=== PATIENT | female | born 1965 | race Hispanic/Latino ===

== ENCOUNTER 2017-02-07 12:17 | Observation (INO) | payer MEDICAID ==
[2017-02-07 12:17] VITALS: BMI 23.6
--- NOTE | 2017-02-07 12:42 | ED PDOC ---
Arrival/HPI - General Chief Complaint: Chest Pain Time Seen by Provider: 02/07/17 12:24 Historian: Patient - History of Present Illness Narrative History of Present Illness (Text): 02/07/17 12:38 A 51 year old female, whose past medical history includes asthma and anxiety, presents to the emergency department complaining of intermittent midsternal chest pain since last night. Patient describes her pain as a sharp sensation. Patient notes associated palpitations, shortness of breath and reports she has been feeling stressed. Patient denies any fever, chills, nausea, vomiting, diarrhea, abdominal pain, urinary symptoms, bilateral lower extremity swelling, cough or any other complaints. Patient reports she was recently on antibiotics for a sinus infection. She denies any recent travel or history of DVT or PE. She took Tums last night and today without relief. PMD: Dr. Pilar Moss Time/Duration: Other (Last night) Symptom Course: Unchanged, Intermittent Quality: Other Context: Home Past Medical History - Provider Review Nursing Documentation Reviewed: Yes - Infectious Disease Hx of Infectious Diseases: None - Tetanus Immunization Tetanus Immunization: Unknown - Cardiac Hx Cardiac Disorders: No - Pulmonary Hx Respiratory Disorders: Yes Hx Asthma: Yes - Neurological Hx Neurological Disorder: Yes - HEENT Hx HEENT Disorder: No - Renal Hx Renal Disorder: No - Endocrine/Metabolic Hx Endocrine Disorders: No - Hematological/Oncological Hx Blood Disorders: No - Integumentary Hx Dermatological Disorder: No - Musculoskeletal/Rheumatological Hx Musculoskeletal Disorders: No - Gastrointestinal Hx Gastrointestinal Disorders: No - Genitourinary/Gynecological Hx Genitourinary Disorders: No - Psychiatric Hx Psychophysiologic Disorder: No Hx Anxiety: No Hx Bipolar Disorder: No Hx Depression: No Hx Emotional Abuse: No Hx Hallucinations: No Hx Panic Disorder: No Hx Post Traumatic Stress Disorder: No Hx Psychosis: No Hx Physical Abuse: No Hx Schizophrenia: No Hx Sexual Abuse: No Hx Substance Use: No - Surgical History Hx Section: Yes Other/Comment: surgery to head and back - Anesthesia Hx Anesthesia: Yes Hx Anesthesia Reactions: No Hx Malignant Hyperthermia: No - Suicidal Assessment Feels Threatened In Home Enviroment: No Family/Social History - Physician Review Nursing Documentation Reviewed: Yes Family/Social History: No Known Family HX Smoking Status: Never Smoked Hx Alcohol Use: No Hx Substance Use: No Hx Substance Use Treatment: No Allergies/Home Meds Allergies/Adverse Reactions: Allergies No Known Allergies Allergy (Verified 02/07/17 12:35) Home Medications: Home Meds Medication Instructions Recorded Confirmed No Known Home Med 02/07/17 02/07/17 Review of Systems - Physician Review All systems were reviewed & negative as marked: Yes - Review of Systems Constitutional: absent: Fevers, Night Sweats Respiratory: SOB. absent: Cough Cardiovascular: Chest Pain, Palpitations. absent: Edema Gastrointestinal: absent: Abdominal Pain, Diarrhea, Nausea, Vomiting Genitourinary Female: absent: Dysuria, Frequency, Hematuria, Urine Output Changes Neurological: absent: Dizziness Physical Exam Vital Signs Reviewed: Yes Vital Signs Temp Pulse Resp BP Pulse Ox 02/07/17 15:07 89 16 148/76 97 02/07/17 12:41 98.7 F 103 H 16 124/68 95 Temperature: Afebrile Blood Pressure: Normal Pulse: Tachycardic Respiratory Rate: Normal Appearance: Positive for: Well-Appearing, Non-Toxic, Comfortable Pain Distress: None Mental Status: Positive for: Alert and Oriented X 3 - Systems Exam Head: Present: Atraumatic, Normocephalic Pupils: Present: PERRL Conjunctiva: Present: Normal Mouth: Present: Moist Mucous Membranes Pharnyx: Present: Normal. No: ERYTHEMA, EXUDATE Neck: Present: Normal Range of Motion Respiratory/Chest: Present: Clear to Auscultation, Good Air Exchange. No: Respiratory Distress, Accessory Muscle Use Cardiovascular: Present: Normal S1, S2, Tachycardic. No: Murmurs Abdomen: Present: Normal Bowel Sounds. No: Tenderness, Distention, Peritoneal Signs Upper Extremity: Present: Normal Inspection. No: Cyanosis, Edema Lower Extremity: Present: Normal Inspection. No: Edema Neurological: Present: GCS=15, CN II-XII Intact, Speech Normal Skin: Present: Warm, Dry, Normal Color. No: Rashes Psychiatric: Present: Alert, Oriented x 3, Normal Insight, Normal Concentration Medical Decision Making ED Course and Treatment: 02/07/17 12:38 Impression: A 51 year old female with intermittent midsternal chest pain. Patient notes palpitations, shortness of breath and feeling stressed. Differential: Anxiety vs PE sv GERD vs ACS vs muscular pain Plan: -- Chest pain -- EKG -- Labs -- Urinalysis -- Xanax and Aspirin -- Reassess and disposition Progress Notes: EKG shows sinus tachycardia at 115 BPM with normal intervals, normal axis, no ST /T changes compared to prior EKG on 04/15/14. Interpreted by me. Report Date : 02/07/2017 14:26:42 Procedure: Chest xray Dictator : David Hernadez MD IMPRESSION: No active disease. 02/07/17 15:20 Patient with noted history. EKG is unchanged from previous. Pain is vague. She took Tums without relief and given xanax here in the emergency department without relief. CXR is clear and lungs are CTA b/L. First set of CE negative and d-dimer is negative. Patient will need serial CE and observation on tele and further cardiology eval for concern for possible ACS. 02/07/17 15:22 Case was discussed with Dr. David David for placement on the hospitalist's service. - Lab Interpretations Lab Results: 02/07/17 12:50 02/07/17 12:50 Lab Results 02/07/17 14:25: PT 10.5, INR 0.97, APTT 30.0, D-Dimer, Quantitative 0.27 02/07/17 12:50: Sodium 136, Potassium 3.6, Chloride 109 H, Carbon Dioxide 20 L, Anion Gap 11, BUN 19, Creatinine 0.6, Est GFR ( Amer) > 60, Est GFR (Non- Af Amer) > 60, Random Glucose 115 H, Calcium 9.1, Magnesium 1.8, Total Bilirubin 0.3, AST 15, ALT 26, Alkaline Phosphatase 74, Lactate Dehydrogenase 452, Total Creatine Kinase 57, Troponin I < 0.01, NT-Pro-B Natriuret Pep 43.8, Total Protein 6.6, Albumin 3.9, Globulin 2.8, Albumin/Globulin Ratio 1.4, Lipase 183 02/07/17 12:50: WBC 6.6, RBC 4.16, Hgb 12.3, Hct 36.0, MCV 86.5, MCH 29.6, MCHC 34.2, RDW 12.6, Plt Count 364, MPV 9.0, Gran % 60.6, Lymph % (Auto) 31.9, [place] % (Auto) 6.4 H, Eos % (Auto) 0.9 L, Baso % (Auto) 0.2, Gran # 4.01, Lymph # 2.1 , [place] # 0.4, Eos # 0.1, Baso # 0.01 I have reviewed the lab results: Yes - RAD Interpretation Radiology Orders: 02/07/17 12:40 CHEST PORTABLE [RAD] Stat - Medication Orders Current Medication Orders: Discontinued Medications Alprazolam (Xanax) 0.25 mg PO STAT STA PRN Reason: Protocol Stop: 02/07/17 12:41 Last Admin: 02/07/17 12:55 Dose: 0.25 mg Aspirin (Aspirin Chewable) 324 mg PO STAT STA Stop: 02/07/17 12:41 Last Admin: 02/07/17 12:55 Dose: 324 mg - Scribe Statement The provider has reviewed the documentation as recorded by the Jocelyne Figueroa Provider Scribe Attestation: All medical record entries made by the Scribe were at my direction and personally dictated by me. I have reviewed the chart and agree that the record accurately reflects my personal performance of the history, physical exam, medical decision making, and the department course for this patient. I have also personally directed, reviewed, and agree with the discharge instructions and disposition. Disposition/Present on Arrival - Present on Arrival Any Indicators Present on Arrival: No History of DVT/PE: No History of Uncontrolled Diabetes: No Urinary Catheter: No History of Decub. Ulcer: No History Surgical Site Infection Following: None - Disposition Have Diagnosis and Disposition been Completed?: Yes Diagnosis: Chest pain Disposition: HOSPITALIZED Disposition Time: 15:05 Patient Plan: Observation, Telemetry Condition: FAIR Discharge Instructions (ExitCare): Chest Pain (ED) Referrals: Pilar Moss MD [Primary Care Provider] - Follow up with primary
[2017-02-07 13:16] LABS: ADD MANUAL DIFF? NO
[2017-02-07 13:21] LABS: BASO # 0.01 K/mm3 (0.0-2.0); BASO % 0.2 % (0.0-3.0); EOS # 0.1 (0.0-0.7); EOS % 0.9 % (1.5-5.0); GRAN # 4.01 (1.4-6.5); GRAN % 60.6 % (50.0-68.0); LYMPH # 2.1 (1.2-3.4); LYMPH % 31.9 % (22.0-35.0); MEAN CELL VOLUME 86.5 fL (80.0-105.0); MEAN CORPUSCULAR HEMOGLOBIN 29.6 pg (25.0-35.0); MEAN CORPUSCULAR HGB CONC 34.2 g/dl (31.0-37.0); MONO # 0.4 (0.1-0.6); MONO % 6.4 % (1.0-6.0); PLATELET COUNT 364 10^3/uL (120.0-450.0); RED CELL DISTRIBUTION WIDTH 12.6 % (11.5-14.5); WHITE BLOOD COUNT 6.6 10^3/ul (4.5-11.0)
[2017-02-07 13:31] LABS: BLOOD UREA NITROGEN 19 mg/dL (7-21); CALCIUM 9.1 mg/dL (8.4-10.5); CARBON DIOXIDE 20 mmol/L (21-33); CHLORIDE 109 mmol/L (98-107); GFR AFRICAN-AMERICAN > 60; GLUCOSE,RANDOM 115 mg/dL (70-110); MAGNESIUM 1.8 mg/dL (1.7-2.2); POTASSIUM 3.6 mmol/L (3.6-5.0); SODIUM 136 mmol/L (132-148); TOTAL PROTEIN 6.6 g/dL (5.8-8.3)
[2017-02-07 13:32] LABS: ALB/GLOB RATIO 1.4 (1.1-1.8); ALKALINE PHOSPHATASE 74 U/L (38-133); ALT/SGPT 26 U/L (7-56); AST/SGOT 15 U/L (15-39); BILIRUBIN,TOTAL 0.3 mg/dL (0.2-1.3); LIPASE 183 U/L (23-300)
[2017-02-07 13:44] LABS: TROPONIN I < 0.01 ng/mL
--- NOTE | 2017-02-07 14:28 | RAD ---
HISTORY: cp COMPARISON: 04/15/2014 FINDINGS: LUNGS: No active pulmonary disease. PLEURA: No significant pleural effusion identified, no pneumothorax apparent. CARDIOVASCULAR: Normal. OSSEOUS STRUCTURES: No significant abnormalities. VISUALIZED UPPER ABDOMEN: Normal. OTHER FINDINGS: None. IMPRESSION: No active disease.
[2017-02-07 14:52] LABS: INR 0.97 (0.93-1.08)
[2017-02-07 14:56] LABS: D DIMER 0.27 mg/L FEU (0-0.50)
--- NOTE | 2017-02-07 16:19 | CP.PCM.HP ---
History of Present Illness - History of Present Illness History of Present Illness: 51 yrs old female with hx of asthma and anxiety came to the ER for c/o cp ( left sternal border) since yesterday . no associated nausea but admits to having sob , pain is intensity of 6/10.pt denies any hx of HTN, DM,.PT,s asthma is seasonal only in the summer ,no pain at the present time. Present on Admission - Present on Admission Any Indicators Present on Admission: No Review of Systems - Review of Systems All systems: reviewed and no additional remarkable complaints except (as mentioned above.) Past Patient History - Infectious Disease Hx of Infectious Diseases: None - Tetanus Immunizations Tetanus Immunization: Unknown - Past Social History Smoking Status: Never Smoked - CARDIAC Hx Cardiac Disorders: No - PULMONARY Hx Respiratory Disorders: Yes Hx Asthma: Yes - NEUROLOGICAL Hx Neurological Disorder: Yes - HEENT Hx HEENT Problems: No - RENAL Hx Chronic Kidney Disease: No - ENDOCRINE/METABOLIC Hx Endocrine Disorders: No - HEMATOLOGICAL/ONCOLOGICAL Hx Blood Disorders: No - INTEGUMENTARY Hx Dermatological Problems: No - MUSCULOSKELETAL/RHEUMATOLOGICAL Hx Musculoskeletal Disorders: No - GASTROINTESTINAL Hx Gastrointestinal Disorders: No - GENITOURINARY/GYNECOLOGICAL Hx Genitourinary Disorders: No - PSYCHIATRIC Hx Psychophysiologic Disorder: No Hx Anxiety: No Hx Bipolar Disorder: No Hx Depression: No Hx Emotional Abuse: No Hx Hallucinations: No Hx Panic Symptoms: No Hx Post Traumatic Stress Disorder: No Hx Psychosis: No Hx Physical Abuse: No Hx Schizophrenia: No Hx Sexual Abuse: No Hx Substance Use: No - SURGICAL HISTORY Hx Section: Yes Other/Comment: surgery to head and back - ANESTHESIA Hx Anesthesia: Yes Hx Anesthesia Reactions: No Hx Malignant Hyperthermia: No Meds Allergies/Adverse Reactions: Allergies Allergy/AdvReac Type Severity Reaction Status Date / Time No Known Allergies Allergy Verified 02/07/17 12:35 Physical Exam - Constitutional Appears: No Acute Distress - Head Exam Head Exam: NORMOCEPHALIC - Eye Exam Eye Exam: Normal appearance Pupil Exam: PERRL - ENT Exam ENT Exam: Mucous Membranes Moist - Neck Exam Neck exam: Positive for: Full Rom, Normal Inspection - Respiratory Exam Respiratory Exam: Chest Wall Tenderness, Clear to Auscultation Bilateral, NORMAL BREATHING PATTERN Additional comments: pt has localized tendernerness at the lfet sternal border. - Cardiovascular Exam Cardiovascular Exam: REGULAR RHYTHM, +S1, +S2 - GI/Abdominal Exam GI & Abdominal Exam: Normal Bowel Sounds, Soft - Rectal Exam Rectal Exam: Deferred - Extremities Exam Extremities exam: Positive for: full ROM - Neurological Exam Neurological exam: Alert, CN II-XII Intact, Oriented x3 - Psychiatric Exam Psychiatric exam: Normal Affect - Skin Skin Exam: Dry, Normal Color, Warm Results - Vital Signs Recent Vital Signs: Last Vital Signs Temp 98.7 F 02/07/17 12:41 Pulse 89 02/07/17 15:07 Resp 16 02/07/17 15:07 BP 148/76 02/07/17 15:07 Pulse Ox 97 02/07/17 15:07 - Labs Result Diagrams: 02/07/17 12:50 02/07/17 12:50 Assessment & Plan - Assessment and Plan (Free Text) Assessment: cp / chest wall. hx of asthma and seasonal allergies. hx of anxiety. Plan: cbc ,bmp serial cardiac iso,duo nebs pain meds ,echo, cardiac consult. PFT. - Date & Time Date: 02/07/17 Time: 16:18
[2017-02-07 16:31] LABS: URINE BILIRUBIN NEGATIVE (NEGATIVE); URINE BLOOD SMALL (NEGATIVE); URINE GLUCOSE (UA) NEGATIVE (NEGATIVE); URINE KETONE TRACE mg/dL (NEGATIVE); URINE LEUKOCYTE ESTERASE NEGATIVE Leu/uL (NEGATIVE); URINE PROTEIN NEGATIVE mg/dL (<30 mg/dL); URINE UROBILINOGEN 0.2 E.U./dL (<1 E.U./dL)
[2017-02-07 16:39] LABS: URINE APPEARANCE CLEAR (CLEAR); URINE COLOR YELLOW (YELLOW)
[2017-02-07 17:08] LABS: URINE BACTERIA LARGE (NEG); URINE WBC 0 - 2 /hpf (0-6)
[2017-02-07 22:33] LABS: TROPONIN I < 0.01 ng/mL
[2017-02-08 01:27] VITALS: RESP 20
[2017-02-08 06:46] VITALS: O2SAT 98
[2017-02-08 07:44] LABS: ADD MANUAL DIFF? NO
[2017-02-08 07:51] LABS: BASO # 0.03 K/mm3 (0.0-2.0); BASO % 0.5 % (0.0-3.0); EOS # 0.1 (0.0-0.7); GRAN # 4.06 (1.4-6.5); HEMATOCRIT 38.3 % (36.0-48.0); LYMPH # 1.7 (1.2-3.4); LYMPH % 27.4 % (22.0-35.0); MEAN CELL VOLUME 86.3 fL (80.0-105.0); MEAN CORPUSCULAR HEMOGLOBIN 29.1 pg (25.0-35.0); MEAN CORPUSCULAR HGB CONC 33.7 g/dl (31.0-37.0); MONO # 0.4 (0.1-0.6); MONO % 6.1 % (1.0-6.0); PLATELET COUNT 339 10^3/uL (120.0-450.0); RED CELL DISTRIBUTION WIDTH 12.5 % (11.5-14.5); WHITE BLOOD COUNT 6.2 10^3/ul (4.5-11.0)
[2017-02-08 08:06] LABS: BLOOD UREA NITROGEN 11 mg/dL (7-21); CALCIUM 8.9 mg/dL (8.4-10.5); CARBON DIOXIDE 23 mmol/L (21-33); CHLORIDE 105 mmol/L (98-107); CHOLESTEROL 211 mg/dL (130-200); GFR AFRICAN-AMERICAN > 60; GLUCOSE,RANDOM 88 mg/dL (70-110); POTASSIUM 3.8 mmol/L (3.6-5.0); SODIUM 134 mmol/L (132-148)
[2017-02-08 08:28] LABS: TROPONIN I < 0.01 ng/mL
--- NOTE | 2017-02-08 10:23 | CARD ---
APPROVED REPORT EKG Measurement Heart [id number] [id number] <Conclusion> Sinus tachycardia PRWP, possible lead positioning Q in 3 Prolonged QTc
--- NOTE | 2017-02-08 11:08 | CARD ---
APPROVED REPORT EKG Measurement Heart [id number] [id number] <Conclusion> Normal sinus rhythm Normal ECG
[2017-02-08 13:28] VITALS: BP 101/77; PULSE 70; TEMP 98.6
--- NOTE | 2017-02-09 07:47 | CON ---
DATE: 02/08/2017 REASON FOR CONSULTATION: Chest pain, cardiac evaluation, rule out CAD. BRIEF CLINICAL HISTORY: This is a 51-year-old female with a past medical history significant for ast hma and anxiety disorder. Currently taking only atorvastatin at home, came in with complaint of left -sided chest pain which was tender. Denies any chest pain, dyspnea on exertion or chest pain on exer tion. PAST MEDICAL HISTORY: Significant for hyperlipidemia, asthma, anxiety disorder. SOCIAL HISTORY: Denies smoking. Denies any history of alcohol abuse. FAMILY HISTORY: No history of coronary artery disease. CURRENT MEDICATIONS: Lipitor at home, sometimes uses asthma pump rarely. REVIEW OF SYSTEMS: As per HPI. PHYSICAL EXAMINATION: VITAL SIGNS: Temperature afebrile, heart rate 70, blood pressure 101/77. HEENT: PERRLA. Extraocular muscles intact. NECK: Supple. No carotid bruits. No thyromegaly. CHEST: Clear to auscultation. HEART: S1, S2 regular. ABDOMEN: Soft. EXTREMITIES: Clubbing and cyanosis negative. BLOOD WORKUP: As follows: WBC 6.____, hemoglobin 12.____, hematocrit 38.3, platelet count of 339. Chemistry shows sodium 134, potassium 3.____, chloride 105, carbon dioxide ____, anion gap of 10, BUN 11, creatinine 0.4. Troponin 0.01, negative. Total cholesterol 211, LDL of ____, HDL 49, TSH is 0 .8. IMPRESSION: Atypical chest pain ____ multiple risk factors for coronary artery disease. EKG shows n ormal sinus, nonspecific ST-T changes. PLAN: Suggest echo and a stress test. Continue Lipitor. Add baby aspirin. Will follow with you. Thank you, Dr. David, for providing the opportunity in taking care of this patient. Will follow with you. Aminah Menjivar MD cc: [id number] TT: 02/09/2017 07:21:38 Confirmation # [id number] Dictation # [id number] mn
--- NOTE | 2017-02-09 07:48 | CON ---
DATE: 02/08/2017 ADDENDUM REASON FOR CONSULTATION: Chest pain. REASON FOR ADDENDUM: The patient underwent a stress test. Initially scheduled for a Myoview stress test, though patient is very claustrophobic so patient underwent regular stress test; walked for 6 mi nutes [address]-T changes noted. No evidence of chest pain. Essentially negative str ess test. Will inform Dr. David David that patient is okay to be discharged from cardiology point of view. Con tinue baby aspirin. Continue Lipitor. Will follow with you. Aminah Menjivar MD cc: [id number] TT: 02/09/2017 07:26:07 Confirmation # [id number] Dictation # [id number] mn
--- NOTE | 2017-02-09 09:27 | CARD ---
APPROVED REPORT EXAM: Two-dimensional and M-mode echocardiogram with Doppler and color Doppler. Other Information Quality : FairRhythm : INDICATION Chest Pain 2D DIMENSIONS Left Atrium (2D)3.0 (1.6-4.0cm)IVSd1.1 (0.7-1.1cm) Aortic Root (2D)2.0 (2.0-3.7cm)LVDd2.8 (3.9-5.9cm) PWd0.9 (0.7-1.1cm)LVDs1.1 (2.5-4.0cm) FS (%) 45.9 %LVEF (%)78.0 (>50%) M-Mode DIMENSIONS Aortic Cusp Exc.2.00 (1.5-2.0cm) Aortic Valve AoV Peak Kwiekcmx086.0cm/s Mitral Valve MV E Ynbdphre50.8cm/sMV A Skigbepm11.1cm/sE/A ratio0.8 TDI Lateral E' Peak V8.92cm/sMedial E' Peak V5.26cm/sE/Lateral E'5.9 E/Medial E'10.0 Pulmonary Valve PV Peak Ubnbtvpl817.0cm/sPV Peak Grad.4mmHg LEFT VENTRICLE The left ventricle is normal size. There is normal left ventricular wall thickness. The left ventricular function is normal. The left ventricular ejection fraction is within the normal range. There is normal LV segmental wall motion. RIGHT VENTRICLE The right ventricle is normal size. ATRIA The left atrium size is normal. The right atrium size is normal. The interatrial septum is intact with no evidence for an atrial septal defect. AORTIC VALVE The aortic valve is mildly calcified. MITRAL VALVE The mitral valve is moderately thickened but opens well. TRICUSPID VALVE The tricuspid valve is not well visualized. PULMONIC VALVE The pulmonic valve is not well visualized. GREAT VESSELS The aortic root is normal in size. PERICARDIAL EFFUSION There is no pericardial effusion. <Conclusion> The left ventricle is normal size. There is normal left ventricular wall thickness. The left ventricular function is normal. The left ventricle is normal size. There is normal left ventricular wall thickness. The left ventricular function is normal.
--- NOTE | 2017-03-09 16:02 | CP.PCM.DIS ---
<KayleeCarlos - Last Filed: 03/09/17 15:53> Provider - Provider Date of Admission: 02/07/17 15:17 Attending physician: David David MD Primary care physician: Pilar Moss MD Time Spent in preparation of Discharge (in minutes): 35 Diagnosis - Discharge Diagnosis (1) Chest pain Status: Acute Hospital Course - Lab Results Lab Results: Most Recent Lab Values WBC 6.2 10^3/ul (4.5-11.0) 02/08/17 07:25 RBC 4.44 10^6/uL (3.5-6.1) 02/08/17 07:25 Hgb 12.9 gm/dL (12.0-16.0) 02/08/17 07:25 Hct 38.3 % (36.0-48.0) 02/08/17 07:25 MCV 86.3 fL (80.0-105.0) 02/08/17 07:25 MCH 29.1 pg (25.0-35.0) 02/08/17 07:25 MCHC 33.7 g/dl (31.0-37.0) 02/08/17 07:25 RDW 12.5 % (11.5-14.5) 02/08/17 07:25 Plt Count 339 10^3/uL (120.0-450.0) 02/08/17 07:25 MPV 9.0 fl (7.0-11.0) 02/08/17 07:25 Gran % 65.0 % (50.0-68.0) 02/08/17 07:25 Lymph % (Auto) 27.4 % (22.0-35.0) 02/08/17 07:25 [place] % (Auto) 6.1 % (1.0-6.0) H 02/08/17 07:25 Eos % (Auto) 1.0 % (1.5-5.0) L 02/08/17 07:25 Baso % (Auto) 0.5 % (0.0-3.0) 02/08/17 07:25 Gran # 4.06 (1.4-6.5) 02/08/17 07:25 Lymph # 1.7 (1.2-3.4) 02/08/17 07:25 [place] # 0.4 (0.1-0.6) 02/08/17 07:25 Eos # 0.1 (0.0-0.7) 02/08/17 07:25 Baso # 0.03 K/mm3 (0.0-2.0) 02/08/17 07:25 PT 10.5 Seconds (9.9-11.8) 02/07/17 14:25 INR 0.97 (0.93-1.08) 02/07/17 14:25 APTT 30.0 Seconds (23.7-30.8) 02/07/17 14:25 D-Dimer, Quantitative 0.27 mg/L FEU (0-0.50) 02/07/17 14:25 Sodium 134 mmol/L (132-148) 02/08/17 07:25 Potassium 3.8 mmol/L (3.6-5.0) 02/08/17 07:25 Chloride 105 mmol/L (98-107) 02/08/17 07:25 Carbon Dioxide 23 mmol/L (21-33) 02/08/17 07:25 Anion Gap 10 (10-20) 02/08/17 07:25 BUN 11 mg/dL (7-21) 02/08/17 07:25 Creatinine 0.4 mg/dL (0.5-1.4) L 02/08/17 07:25 Est GFR ( Amer) > 60 02/08/17 07:25 Est GFR (Non-Af Amer) > 60 02/08/17 07:25 Random Glucose 88 mg/dL (70-110) 02/08/17 07:25 Calcium 8.9 mg/dL (8.4-10.5) 02/08/17 07:25 Magnesium 1.8 mg/dL (1.7-2.2) 02/07/17 12:50 Total Bilirubin 0.3 mg/dL (0.2-1.3) 02/07/17 12:50 AST 15 U/L (15-39) 02/07/17 12:50 ALT 26 U/L (7-56) 02/07/17 12:50 Alkaline Phosphatase 74 U/L (38-133) 02/07/17 12:50 Lactate Dehydrogenase 335 U/L (333-699) 02/08/17 07:25 Total Creatine Kinase 44 U/L (35-230) 02/08/17 07:25 Troponin I < 0.01 ng/mL 02/08/17 07:25 NT-Pro-B Natriuret Pep 43.8 pg/mL (0-450) 02/07/17 12:50 Total Protein 6.6 g/dL (5.8-8.3) 02/07/17 12:50 Albumin 3.9 g/dL (3.0-4.8) 02/07/17 12:50 Globulin 2.8 gm/dL 02/07/17 12:50 Albumin/Globulin Ratio 1.4 (1.1-1.8) 02/07/17 12:50 Triglycerides 93 mg/dL (35-160) 02/08/17 07:25 Cholesterol 211 mg/dL (130-200) H 02/08/17 07:25 LDL Cholesterol Direct 153 mg/dL (0-129) H 02/08/17 07:25 HDL Cholesterol 49 mg/dL (29-60) 02/08/17 07:25 Lipase 183 U/L (23-300) 02/07/17 12:50 TSH 3rd Generation 0.8 MIU/ml (0.46-4.68) 02/08/17 08:00 Urine Color Yellow (YELLOW) 02/07/17 15:50 Urine Appearance Clear (CLEAR) 02/07/17 15:50 Urine pH 6.0 (4.7-8.0) 02/07/17 15:50 Ur Specific [place] 1.025 (1.005-1.035) 02/07/17 15:50 Urine Protein Negative mg/dL (<30 mg/dL) 02/07/17 15:50 Urine Glucose (UA) Negative mg/dL (NEGATIVE) 02/07/17 15:50 Urine Ketones Trace mg/dL (NEGATIVE) H 02/07/17 15:50 Urine Blood Small (NEGATIVE) H 02/07/17 15:50 Urine Nitrate Negative (NEGATIVE) 02/07/17 15:50 Urine Bilirubin Negative (NEGATIVE) 02/07/17 15:50 Urine Urobilinogen 0.2 E.U./dL (<1 E.U./dL) 02/07/17 15:50 Ur Leukocyte Esterase Negative Olivier/uL (NEGATIVE) 02/07/17 15:50 Urine RBC 2 - 5 /hpf (0-2) 02/07/17 15:50 Urine WBC 0 - 2 /hpf (0-6) 02/07/17 15:50 Ur Epithelial Cells 4 - 5 /hpf (0-5) 02/07/17 15:50 Urine Bacteria Large (NEG) 02/07/17 15:50 Urine Opiates Screen Negative (NEGATIVE) 02/07/17 15:50 Urine Methadone Screen Negative (NEGATIVE) 02/07/17 15:50 Ur Barbiturates Screen Negative (NEGATIVE) 02/07/17 15:50 Ur Phencyclidine Scrn Negative (NEGATIVE) 02/07/17 15:50 Ur Amphetamines Screen Negative (NEGATIVE) 02/07/17 15:50 U Benzodiazepines Scrn Positive (NEGATIVE) H 02/07/17 15:50 U Oth Cocaine Metabols Negative (NEGATIVE) 02/07/17 15:50 U Cannabinoids Screen Negative (NEGATIVE) 02/07/17 15:50 - Hospital Course Hospital Course: This is a discharge summery for 02/08/17 This is a 51 yrs old female with hx of asthma and anxiety came to the ER for c/ o cp ( left sternal border) since yesterday . He did not experience any nausea but admits to having sob , pain is intensity of 6/10. pt denies any hx of HTN, DM,.PT,s asthma is seasonal only in the summer ,no pain at the present time. The patient was admitted to r/o acute coronary syndrome. Cardiac w/u including cardiac enzymes were negative. EKG did not reveal acute ischemic change. Cardiology was consulted and determined the patient to be stable and without acute cardiac ischemia. The patient was continued on Aspirin 81 mg daily. The patient is to f/u with Dr. Menjivar for outpatient stress testing. Discharge Exam - Head Exam Head Exam: NORMOCEPHALIC - Eye Exam Eye Exam: EOMI, PERRL - ENT Exam ENT Exam: Mucous Membranes Moist - Respiratory Exam Respiratory Exam: Clear to PA & Lateral. absent: Rales, Rhonchi, Wheezes - Cardiovascular Exam Cardiovascular Exam: REGULAR RHYTHM, +S1, +S2 - GI/Abdominal Exam GI & Abdominal Exam: Normal Bowel Sounds. absent: Soft - Extremities Exam Extremities exam: full ROM, pedal pulses present - Neurological Exam Neurological exam: Alert, Oriented x3 - Psychiatric Exam Psychiatric exam: Normal Affect, Normal Mood - Skin Skin Exam: Dry, Normal Color Discharge Plan - Discharge Medications Prescriptions: Atorvastatin [Lipitor] 10 mg PO DAILY #30 tab - Follow Up Plan Condition: FAIR Disposition: HOME/ ROUTINE Instructions: Noncardiac Chest Pain (GEN), Hyperlipidemia (GEN) Additional Instructions: Please see your primary care physician within the next week for further evaluation. Your cholesterol levels are elevated. You are prescribed a medicine to lower your cholesterol levels called Lipitor. Take one tablet daily. If you continue to experience pain or your symptoms change please call your primary care physician or come to the emergency room. Referrals: Pilar Moss MD [Primary Care Provider] - <David David - Last Filed: 03/12/17 14:43> Provider - Provider Date of Admission: 02/07/17 15:17 Attending physician: David David MD Primary care physician: Pilar Moss MD Hospital Course - Lab Results Lab Results: Most Recent Lab Values WBC 6.2 10^3/ul (4.5-11.0) 02/08/17 07:25 RBC 4.44 10^6/uL (3.5-6.1) 02/08/17 07:25 Hgb 12.9 gm/dL (12.0-16.0) 02/08/17 07:25 Hct 38.3 % (36.0-48.0) 02/08/17 07:25 MCV 86.3 fL (80.0-105.0) 02/08/17 07:25 MCH 29.1 pg (25.0-35.0) 02/08/17 07:25 MCHC 33.7 g/dl (31.0-37.0) 02/08/17 07:25 RDW 12.5 % (11.5-14.5) 02/08/17 07:25 Plt Count 339 10^3/uL (120.0-450.0) 02/08/17 07:25 MPV 9.0 fl (7.0-11.0) 02/08/17 07:25 Gran % 65.0 % (50.0-68.0) 02/08/17 07:25 Lymph % (Auto) 27.4 % (22.0-35.0) 02/08/17 07:25 [place] % (Auto) 6.1 % (1.0-6.0) H 02/08/17 07:25 Eos % (Auto) 1.0 % (1.5-5.0) L 02/08/17 07:25 Baso % (Auto) 0.5 % (0.0-3.0) 02/08/17 07:25 Gran # 4.06 (1.4-6.5) 02/08/17 07:25 Lymph # 1.7 (1.2-3.4) 02/08/17 07:25 [place] # 0.4 (0.1-0.6) 02/08/17 07:25 Eos # 0.1 (0.0-0.7) 02/08/17 07:25 Baso # 0.03 K/mm3 (0.0-2.0) 02/08/17 07:25 PT 10.5 Seconds (9.9-11.8) 02/07/17 14:25 INR 0.97 (0.93-1.08) 02/07/17 14:25 APTT 30.0 Seconds (23.7-30.8) 02/07/17 14:25 D-Dimer, Quantitative 0.27 mg/L FEU (0-0.50) 02/07/17 14:25 Sodium 134 mmol/L (132-148) 02/08/17 07:25 Potassium 3.8 mmol/L (3.6-5.0) 02/08/17 07:25 Chloride 105 mmol/L (98-107) 02/08/17 07:25 Carbon Dioxide 23 mmol/L (21-33) 02/08/17 07:25 Anion Gap 10 (10-20) 02/08/17 07:25 BUN 11 mg/dL (7-21) 02/08/17 07:25 Creatinine 0.4 mg/dL (0.5-1.4) L 02/08/17 07:25 Est GFR ( Amer) > 60 02/08/17 07:25 Est GFR (Non-Af Amer) > 60 02/08/17 07:25 Random Glucose 88 mg/dL (70-110) 02/08/17 07:25 Calcium 8.9 mg/dL (8.4-10.5) 02/08/17 07:25 Magnesium 1.8 mg/dL (1.7-2.2) 02/07/17 12:50 Total Bilirubin 0.3 mg/dL (0.2-1.3) 02/07/17 12:50 AST 15 U/L (15-39) 02/07/17 12:50 ALT 26 U/L (7-56) 02/07/17 12:50 Alkaline Phosphatase 74 U/L (38-133) 02/07/17 12:50 Lactate Dehydrogenase 335 U/L (333-699) 02/08/17 07:25 Total Creatine Kinase 44 U/L (35-230) 02/08/17 07:25 Troponin I < 0.01 ng/mL 02/08/17 07:25 NT-Pro-B Natriuret Pep 43.8 pg/mL (0-450) 02/07/17 12:50 Total Protein 6.6 g/dL (5.8-8.3) 02/07/17 12:50 Albumin 3.9 g/dL (3.0-4.8) 02/07/17 12:50 Globulin 2.8 gm/dL 02/07/17 12:50 Albumin/Globulin Ratio 1.4 (1.1-1.8) 02/07/17 12:50 Triglycerides 93 mg/dL (35-160) 02/08/17 07:25 Cholesterol 211 mg/dL (130-200) H 02/08/17 07:25 LDL Cholesterol Direct 153 mg/dL (0-129) H 02/08/17 07:25 HDL Cholesterol 49 mg/dL (29-60) 02/08/17 07:25 Lipase 183 U/L (23-300) 02/07/17 12:50 TSH 3rd Generation 0.8 MIU/ml (0.46-4.68) 02/08/17 08:00 Urine Color Yellow (YELLOW) 02/07/17 15:50 Urine Appearance Clear (CLEAR) 02/07/17 15:50 Urine pH 6.0 (4.7-8.0) 02/07/17 15:50 Ur Specific [place] 1.025 (1.005-1.035) 02/07/17 15:50 Urine Protein Negative mg/dL (<30 mg/dL) 02/07/17 15:50 Urine Glucose (UA) Negative mg/dL (NEGATIVE) 02/07/17 15:50 Urine Ketones Trace mg/dL (NEGATIVE) H 02/07/17 15:50 Urine Blood Small (NEGATIVE) H 02/07/17 15:50 Urine Nitrate Negative (NEGATIVE) 02/07/17 15:50 Urine Bilirubin Negative (NEGATIVE) 02/07/17 15:50 Urine Urobilinogen 0.2 E.U./dL (<1 E.U./dL) 02/07/17 15:50 Ur Leukocyte Esterase Negative [place]ier/uL (NEGATIVE) 02/07/17 15:50 Urine RBC 2 - 5 /hpf (0-2) 02/07/17 15:50 Urine WBC 0 - 2 /hpf (0-6) 02/07/17 15:50 Ur Epithelial Cells 4 - 5 /hpf (0-5) 02/07/17 15:50 Urine Bacteria Large (NEG) 02/07/17 15:50 Urine Opiates Screen Negative (NEGATIVE) 02/07/17 15:50 Urine Methadone Screen Negative (NEGATIVE) 02/07/17 15:50 Ur Barbiturates Screen Negative (NEGATIVE) 02/07/17 15:50 Ur Phencyclidine Scrn Negative (NEGATIVE) 02/07/17 15:50 Ur Amphetamines Screen Negative (NEGATIVE) 02/07/17 15:50 U Benzodiazepines Scrn Positive (NEGATIVE) H 02/07/17 15:50 U Oth Cocaine Metabols Negative (NEGATIVE) 02/07/17 15:50 U Cannabinoids Screen Negative (NEGATIVE) 02/07/17 15:50 Attending/Attestation - Attestation I have personally seen and examined this patient.: Yes I have fully participated in the care of the patient.: Yes I have reviewed all pertinent clinical information, including history, physical exam and plan: Yes Notes (Text): I have seen and examined patient at bedside. This is 51 year old female with history of asthma and anxiety here for chest pain. Rehab Assistant recommended outpatient stress test. Upon discharge patient will follow up with Dr Amarjit Moss.
== END 2017-02-08 14:12 | disposition home or self-care (01) ==
LOC: ED 12:17 → ERH 15:17 → 2RSO 02-08 01:04
PROVIDERS: ADMIT Hospitalist; ATTEND Hospitalist
DX: R07.89 Other chest pain (principal); J45.909 Unspecified asthma, uncomplicated; F41.9 Anxiety disorder, unspecified; E78.5 Hyperlipidemia, unspecified; F40.240 Claustrophobia
CPT/HCPCS: 36415; 71010; 80048; 80053; 80061; 80324; 80345; 80346; 80349; 80353; 80358; 80361; 81001; 82550; 83615; 83690; 83735; 83880; 83992; 84443; 84484; 85025; 85378; 85610; 85730; 93005; 93017; 93306; G0378

== ENCOUNTER 2017-04-16 10:04 | Emergency (ER) | payer MEDICAID ==
[2017-04-16 10:04] VITALS: BMI 23.6
[2017-04-16 10:27] VITALS: PULSE 84; RESP 18; TEMP 98.2
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
[2017-04-16 11:40] VITALS: BP 138/85; O2SAT 100
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
== END 2017-04-16 11:57 | disposition home or self-care (01) ==
LOC: ED 10:04
DX: S49.92XA Unspecified injury of left shoulder and upper arm, initial encounter (principal); W22.8XXA Striking against or struck by other objects, initial encounter; Y93.89 Activity, other specified; Y92.89 Other specified places as the place of occurrence of the external cause; M25.522 Pain in left elbow; M25.512 Pain in left shoulder